=== PATIENT | female | born 1945 | race Caucasian/White ===

== ENCOUNTER → 2017-09-28 07:14 | Outpatient (CLI) | payer MEDICARE, SELFPAY ==
--- NOTE | 2017-09-28 09:24 | MRI_ITS ---
STUDY: MRI BRAIN WITHOUT CONTRAST REASON FOR EXAM: Female, 71 years old. Dizziness and syncope. TECHNIQUE: Standardized multiplanar fat and water weighted pulse sequences were obtained. COMPARISON: Prior comparison studies are not available for review at this time. FINDINGS: There is mild cerebral atrophy with widening of the extra-axial spaces and ventricular dilatation. There are multiple white matter hyperintensities, distributed throughout the deep white matter tracts of the cerebral hemispheres, consistent with moderate chronic white matter ischemic changes. There is no evidence for recent intracranial ischemia or other cause of cytotoxic edema on diffusion weighted imaging (DWI). There are prominent perivascular spaces (PVS) involving the basal ganglia. Normal thalami. There is no extra-axial fluid accumulation. Normal flow voids within the major intracranial circulation suggesting patency by spin echo criteria. Normal sella turcica, pituitary gland, infundibular stalk, optic chiasm and hypothalamus. Normal tectal plate and pineal gland. Normal midbrain, rico and medulla. Normal cerebellum. Normal basal cisterns. Normal bilateral temporal bones. Normal bilateral internal auditory canals. There are bilateral ocular lens implants with otherwise normal intraorbital contents. Normal visualized paranasal sinuses. There is moderate deviation of nasal septum towards the right. Normal calvarium and skull base. Normal visualized soft tissue structures. Normal visualized upper cervical spine. MRI/Brain without Contrast IMPRESSION: 1. Involutional changes of the brain, as described above. 2. No MR evidence for acute infarct. Electronically Signed: Rachele Stephens MD at 11:58 EDT , Service support ,
--- NOTE | 2017-09-29 12:48 | EEG ---
- Electroencephalogram Date of service 09/28/2017 History EEG is being done in this 71 yr F to rule out seizures EEG Description: This is an 18 channel EEG with 10-20 lead placement system. Bipolar montages, Referential and Circumferential montages were reviewed. Photic stimulation and Hyperventilation were performed. The posterior dominant rhythm is 10 HZ synchronous, symmetric, reacting to eye opening and closing. Photo stimulation elicited normal driving response but no abnormal photoparoxysmal response, Hyperventilation did not elicit any abnormal photoparoxysmal response. Sleep was identified. There is no abnormal background slowing noted. There was no epileptiform discharges or electrographic seizures noted during this recording. EEG Interpretation This is a normal awake and asleep EEG. There is no epileptiform discharges or electrographic seizures noted during the record.
== END ==
PROVIDERS: Family Provider Family Medicine; PCP Family Medicine; Visit Provider Psychiatry & Neurology Neurology
DX: R55 Syncope and collapse (principal)
CPT/HCPCS: 70551; 95819

== ENCOUNTER → 2019-08-09 | Outpatient (CLI) | payer MEDICARE, SELFPAY ==
[2019-08-10 07:14] LABS: SARS-COV-2 TOTAL ABS Nonreactive (Nonreactive)
== END | disposition home or self-care (01) ==
PROVIDERS: PCP Family Medicine; Referring Provider Preventive Medicine Occupational Medicine; Visit Provider Preventive Medicine Occupational Medicine
DX: Z20.828 Contact with and (suspected) exposure to other viral communicable diseases (principal)
CPT/HCPCS: 86769; G2023

== ENCOUNTER 2024-11-21 17:51 | Emergency (ER) | payer MEDICARE, SELFPAY ==
[2024-11-21] VITALS (7 sets, daily range): BP systolic 105–128; BP diastolic 59–103; PULSE 83–86; RESP 17–22; TEMP 36.6; O2SAT 94–97; BMI 24.7
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
[2024-11-21] MEDS: fentaNYL 100 MCG/2 ML Ampul 50 MCG IV (19:28)
[2024-11-21] MEDS: HYDROcodone Bitartrate/Apap 5/325 Tablet PO ×2 (20:30→23:22)
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
[2024-11-21 21:16] LABS: Troponin T High Sensitivity 14 ng/L (<=14)
[2024-11-21 22:55] LABS: Troponin T High Sens 2 HR 14 ng/L (<=14)
== END 2024-11-21 23:25 | disposition home or self-care (01) ==
PROVIDERS: Emergency Provider Student in an Organized Health Care Education/Training Program; PCP Nurse Practitioner Family; Visit Provider Student in an Organized Health Care Education/Training Program
DX: S22.20XA Unspecified fracture of sternum, initial encounter for closed fracture (principal); K50.90 Crohn's disease, unspecified, without complications; S90.112A Contusion of left great toe without damage to nail, initial encounter; S80.12XA Contusion of left lower leg, initial encounter; S80.11XA Contusion of right lower leg, initial encounter; V43.62XA Car passenger injured in collision with other type car in traffic accident, initial encounter; M54.2 Cervicalgia; M25.551 Pain in right hip; M79.675 Pain in left toe(s); Z79.899 Other long term (current) drug therapy; Z87.891 Personal history of nicotine dependence
CPT/HCPCS: 70450; 71260; 72125; 73590; 73630; 74177; 84484; 90715; 93005; 96372; 96374; 99285; Q9967; A4216